=== PATIENT | male | born 1970 | race Caucasian/White ===

== ENCOUNTER 2017-09-01 11:40 | Emergency (ER) | payer BC ==
[2017-09-01] MEDS ORDERED: Aspirin TAB* 325 MG PO ONE (12:48)
[2017-09-01 13:06] LABS: ABS Basophils 0.1 10^3/ul (0-0.2); ABS Eosinophils 0.1 10^3/ul (0-0.6); ABS Lymphocytes 3.4 10^3/ul (1.0-4.8); ABS Monocytes 0.6 10^3/ul (0-0.8); ABS Neutrophils 6.6 10^3/ul (1.5-7.7); ABS Nucleated RBC 0 10^3/ul; Eosinophil % 1.3 % (0-6); Hematocrit 45 % (42-52); Hemoglobin 15.5 g/dl (14.0-18.0); Lymphocyte % 31.5 % (25-47); Mean Corpuscular HGB Conc 34 g/dl (31-36); Mean Corpuscular Hemoglobin 30 pg (27-31); Mean Corpuscular Volume 88 fL (80-94); Mean Platelet Volume 9 um3 (7.4-10.4); Nucleated Red Blood Cells % 0.1; Platelet Count 211 10^3/ul (150-450); Red Blood Count 5.14 10^6/ul (4.0-5.4); Red Cell Distribution Width 13 % (10.5-15); White Blood Count 10.9 10^3/ul (3.5-10.8)
[2017-09-01 13:13] LABS: INR 0.83 (0.77-1.02)
[2017-09-01 13:19] LABS: EGFR Non-African American 95.8 (>60)
--- NOTE | 2017-09-01 13:29 | RAD ---
INDICATION: Atraumatic facial tingling on the left side of the face COMPARISON: None. TECHNIQUE: Contiguous axial sections of the brain were obtained from the skull base to the vertex without contrast. FINDINGS: The ventricles, cisterns and sulci are within normal limits. The coto-white matter differentiation is adequately maintained and there is no sulcal effacement. No significant focal abnormality or mass effect is present. There is no evidence for intracranial hemorrhage. No significant focal osseous abnormality is present. The visualized portion of the paranasal sinuses appear clear. The mastoid air cells are well aerated bilaterally. IMPRESSION: Normal CT of the brain.
[2017-09-01 13:36] LABS: Urine Appearance Clear; Urine Blood Negative (Negative); Urine Color Yellow; Urine Ketones Negative (Negative); Urine Protein Negative (Negative); Urine Specific Gravity 1.025 (1.010-1.030); Urine Urobilinogen Negative (Negative)
--- NOTE | 2017-09-01 15:51 | RAD ---
INDICATION: Weakness, paresthesias. COMPARISON: Comparison is made with a prior CT of the brain from September 01, 2017. TECHNIQUE: Sagittal T1, axial T1, T2, susceptibility, FLAIR and diffusion weighted images were obtained. FINDINGS: The ventricles, cisterns and sulci appear to be within normal limits. There are multiple focal areas of increased signal intensity and T2-weighted images present in the periventricular and subcortical white matter bilaterally. These are most prominent in the frontal and parietal lobes. No other focal abnormality or mass effect is seen. No areas of restricted diffusion are present. There is no evidence for infarct or hemorrhage. The visualized portion of the paranasal sinuses and mastoid air cells appear clear. IMPRESSION: THERE ARE MULTIPLE FOCAL AREAS OF INCREASED SIGNAL INTENSITY IN T2-WEIGHTED IMAGES PRESENT IN THE SUBCORTICAL AND PERIVENTRICULAR WHITE MATTER. THESE WOULD BE SUGGESTIVE OF DEMYELINATING DISEASE SUCH MULTIPLE SCLEROSIS LESS LIKELY CHRONIC SMALL VESSELS ISCHEMIC CHANGES OR VASCULITIS. RECOMMEND CLINICAL CORRELATION AND FOLLOW-UP.
[2017-09-01 16:46] VITALS: BP 136/78
--- NOTE | 2017-09-01 21:41 | ED ---
Jeramie Lowry Stephanie, scribed for Gabriel Ventura MD on 09/01/17 at 1250 . Neurological HPI - HPI Summary HPI Summary: The pt is a 47 y/o M presenting to the ED with c/o facial numbness that began at 11:00 yesterday. The pt states he has light numbness in left upper lip, left forehead and then spreads to the L face. He states that today his lip sensation is normal however, his face is still numb. The pt reports having the common cold 1.5 weeks ago. - History of Current Complaint Chief Complaint: EDGeneral Stated Complaint: NUMBNESS TO LEFT SIDE OF FACE Time Seen by Provider: 09/01/17 12:20 Hx Obtained From: Patient Onset/Duration: Gradual Onset, Started days ago - 1, Still Present Timing: Constant Pain Intensity: 0 Pain Scale Used: 0-10 Numeric Character: Numbness/Tingling - L lip and face Aggravating: Nothing Alleviating: Nothing - Allergy/Home Medications Allergies/Adverse Reactions: Allergies Allergy/AdvReac Type Severity Reaction Status Date / Time No Known Allergies Allergy Verified 12/25/13 22:50 PMH/Surg Hx/FS Hx/Imm Hx Sensory History: Denies: Hx Legally Blind EENT History: Denies: Hx Deafness - Surgical History Surgery Procedure, Year, and Place: NONE Infectious Disease History: No Infectious Disease History: Denies: Traveled Outside the [place] in Last 30 Days - Family History Known Family History: Positive: Cardiac Disease - Social History Occupation: Employed Full-time Lives: With Family Alcohol Use: Rare Substance Use Type: Reports: None Smoking Status (MU): Light Every Day Tobacco Smoker Review of Systems Negative: Fever Positive: Numbness - L lip, face, and forehead All Other Systems Reviewed And Are Negative: Yes Physical Exam - Summary Physical Exam Summary: Appearance: The patient is well-nourished in no acute distress and in no acute pain. Skin: The skin is warm and dry and skin color reflects adequate perfusion. HEENT: The head is normocephalic and atraumatic. The pupils are equal and reactive. The conjunctivae are clear and without drainage. Nares are patent and without drainage. Mouth reveals moist mucous membranes and the throat is without erythema and exudate. The external ears are intact. The ear canals are patent and without drainage. The tympanic membranes are intact. Neck: the neck is supple with full range of motion and non-tender. There are no carotid bruits. There is no neck vein distension. Respiratory: Chest is non-tender. Lungs are clear to auscultation and breath sounds are symmetrical and equal. Cardiovascular: Heart is regular rate and rhythm. There is no murmur or rub auscultated. There is no peripheral edema and pulses are symmetrical and equal. Abdomen: The abdomen is soft and non-tender. There are normal bowel sounds heard in all four quadrants and there is no organomegaly palpated. Musculoskeletal: There is no back tenderness noted. Extremities are non-tender with full range of motion. There is good capillary refill. There is no peripheral edema or calf tenderness elicited. Neurological: Patient is alert and oriented to person, place and time. The patient has symmetrical motor strength in all four extremities. Cranial nerves are grossly intact. Deep tendon reflexes are symmetrical and equal in all four extremities. 2 pt discrimination slightly decreased in L lower face, nml in forehead. Light touch vs. pin prick is nml. Psychiatric: The patient has an appropriate affect and does not exhibit any anxiety or depression. Triage Information Reviewed: Yes Vital Signs On Initial Exam: Initial Vitals Temp Pulse Resp BP Pulse Ox 97.2 F 78 17 167/84 97 09/01/17 11:45 09/01/17 11:45 09/01/17 11:45 09/01/17 11:45 09/01/17 11:45 Vital Signs Reviewed: Yes Diagnostics - Vital Signs Vital Signs Temp Pulse Resp BP Pulse Ox 09/01/17 11:45 97.2 F 78 17 167/84 97 - Laboratory Lab Results: Lab Results 09/01/17 09/01/17 09/01/17 Range/Units 12:54 12:54 12:54 WBC 10.9 H (3.5-10.8) 10^3/ul RBC 5.14 (4.0-5.4) 10^6/ul Hgb 15.5 (14.0-18.0) g/dl Hct 45 (42-52) % MCV 88 (80-94) fL MCH 30 (27-31) pg MCHC 34 (31-36) g/dl RDW 13 (10.5-15) % Plt Count 211 (150-450) 10^3/ul MPV 9 (7.4-10.4) um3 Neut % (Auto) 60.7 (38-83) % Lymph % (Auto) 31.5 (25-47) % Ralls % (Auto) 5.9 (0-7) % Eos % (Auto) 1.3 (0-6) % Baso % (Auto) 0.6 (0-2) % Absolute Neuts (auto) 6.6 (1.5-7.7) 10^3/ul Absolute Lymphs (auto) 3.4 (1.0-4.8) 10^3/ul Absolute Monos (auto) 0.6 (0-0.8) 10^3/ul Absolute Eos (auto) 0.1 (0-0.6) 10^3/ul Absolute Basos (auto) 0.1 (0-0.2) 10^3/ul Absolute Nucleated RBC 0 10^3/ul Nucleated RBC % 0.1 INR (Anticoag Therapy) (0.77-1.02) Sodium 137 (133-145) mmol/L Potassium 3.7 (3.5-5.0) mmol/L Chloride 105 (101-111) mmol/L Carbon Dioxide 26 (22-32) mmol/L Anion Gap 6 (2-11) mmol/L BUN 17 (6-24) mg/dL Creatinine 0.85 (0.67-1.17) mg/dL Est GFR ( Amer) 123.2 (>60) Est GFR (Non-Af Amer) 95.8 (>60) BUN/Creatinine Ratio 20.0 (8-20) Glucose 96 (70-100) mg/dL Lactic Acid 1.0 (0.5-2.0) mmol/L Calcium 9.7 (8.6-10.3) mg/dL Total Bilirubin 0.40 (0.2-1.0) mg/dL AST 20 (13-39) U/L ALT 21 (7-52) U/L Alkaline Phosphatase 59 (34-104) U/L Troponin I 0.00 (<0.04) ng/mL Total Protein 7.8 (6.4-8.9) g/dL Albumin 4.4 (3.2-5.2) g/dL Globulin 3.4 (2-4) g/dL Albumin/Globulin Ratio 1.3 (1-3) Urine Color Urine Appearance Urine pH (5-9) Ur Specific [place] (1.010-1.030) Urine Protein (Negative) Urine Ketones (Negative) Urine Blood (Negative) Urine Nitrate (Negative) Urine Bilirubin (Negative) Urine Urobilinogen (Negative) Ur Leukocyte Esterase (Negative) Urine Glucose (Negative) Urine Ascorbic Acid (Negative) 09/01/17 09/01/17 Range/Units 12:54 13:25 WBC (3.5-10.8) 10^3/ul RBC (4.0-5.4) 10^6/ul Hgb (14.0-18.0) g/dl Hct (42-52) % MCV (80-94) fL MCH (27-31) pg MCHC (31-36) g/dl RDW (10.5-15) % Plt Count (150-450) 10^3/ul MPV (7.4-10.4) um3 Neut % (Auto) (38-83) % Lymph % (Auto) (25-47) % Ralls % (Auto) (0-7) % Eos % (Auto) (0-6) % Baso % (Auto) (0-2) % Absolute Neuts (auto) (1.5-7.7) 10^3/ul Absolute Lymphs (auto) (1.0-4.8) 10^3/ul Absolute Monos (auto) (0-0.8) 10^3/ul Absolute Eos (auto) (0-0.6) 10^3/ul Absolute Basos (auto) (0-0.2) 10^3/ul Absolute Nucleated RBC 10^3/ul Nucleated RBC % INR (Anticoag Therapy) 0.83 (0.77-1.02) Sodium (133-145) mmol/L Potassium (3.5-5.0) mmol/L Chloride (101-111) mmol/L Carbon Dioxide (22-32) mmol/L Anion Gap (2-11) mmol/L BUN (6-24) mg/dL Creatinine (0.67-1.17) mg/dL Est GFR ( Amer) (>60) Est GFR (Non-Af Amer) (>60) BUN/Creatinine Ratio (8-20) Glucose (70-100) mg/dL Lactic Acid (0.5-2.0) mmol/L Calcium (8.6-10.3) mg/dL Total Bilirubin (0.2-1.0) mg/dL AST (13-39) U/L ALT (7-52) U/L Alkaline Phosphatase (34-104) U/L Troponin I (<0.04) ng/mL Total Protein (6.4-8.9) g/dL Albumin (3.2-5.2) g/dL Globulin (2-4) g/dL Albumin/Globulin Ratio (1-3) Urine Color Yellow Urine Appearance Clear Urine pH 5.0 (5-9) Ur Specific [place] 1.025 (1.010-1.030) Urine Protein Negative (Negative) Urine Ketones Negative (Negative) Urine Blood Negative (Negative) Urine Nitrate Negative (Negative) Urine Bilirubin Negative (Negative) Urine Urobilinogen Negative (Negative) Ur Leukocyte Esterase Negative (Negative) Urine Glucose Negative (Negative) Urine Ascorbic Acid * H (Negative) Result Diagrams: 09/01/17 12:54 09/01/17 12:54 Lab Statement: Any lab studies that have been ordered have been reviewed, and results considered in the medical decision making process. - CT Brain CT Interpretation: No Acute Changes CT Interpretation Completed By: Radiologist - Normal CT of the brain. - EKG 12:47 Cardiac Rate: NL EKG Rhythm: Sinus Rhythm - 64 BPM EKG Interpretation: normal - Additional Comments Diagnostic Additional Comments: MRI brain reveals: THERE ARE MULTIPLE FOCAL AREAS OF INCREASED SIGNAL INTENSITY IN T2-WEIGHTED IMAGES PRESENT IN THE SUBCORTICAL AND PERIVENTRICULAR WHITE MATTER. THESE WOULD BE SUGGESTIVE OF DEMYELINATING DISEASE SUCH MULTIPLE SCLEROSIS LESS LIKELY CHRONIC SMALL VESSELS ISCHEMIC CHANGES OR VASCULITIS. RECOMMEND CLINICAL CORRELATION AND FOLLOW-UP. Course/Dx - Course Course Of Treatment: Mr. Ojeda presented with left facial numbness that he first noticed when he awoke yesterday afternoon (he works nights). He first noticed it on the left cheek but while working last night he noticed it on his forehead. His exam was positive for some decreased sensation in the lower facial distribution only. CT and labs were negative and Dr. Gallagher suggested an MRI. The MRI showed some possible demyelating disease. Dr. Gallagher wants to F/U him up for further W/U tomorrow AM. - Diagnoses Provider Diagnoses: Demyelinating changes in brain Discharge - Discharge Plan Condition: Stable Disposition: HOME Referrals: No Primary Care Phys,NOPCP [Primary Care Provider] - Venu Gallagher MD [Medical Doctor] - 1 Day Additional Instructions: There were some abnormalities on MRI. Follow up with Dr. Gallagher tomorrow as scheduled. The documentation as recorded by the Jeramie rosario Stephanie accurately reflects the service I personally performed and the decisions made by me, Gabriel Ventura MD.
== END 2017-09-01 16:45 | disposition home or self-care (01) ==
LOC: ED 11:40
DX: G37.9 Demyelinating disease of central nervous system, unspecified (principal); R20.0 Anesthesia of skin; F17.210 Nicotine dependence, cigarettes, uncomplicated
CPT/HCPCS: 36415; 70450; 70551; 80053; 81003; 83605; 84484; 85025; 85610; 93005; 99282